=== PATIENT | female | born 1975 | race African-American/Black ===

== ENCOUNTER 2016-12-02 18:31 | Emergency (ER) | payer OTHER ==
[~2016-12-02] VITALS: Ht 157.5 cm; Wt 108.9 kg
--- NOTE | ~2016-12-02 | EKG ---
[place] [address] [address] [place] [address] ELECTROCARDIOGRAM REPORT Name: KRISTINE MORENO Room #: [facility] [id number] Admission: 12/02/16 Attend Phys: Discharge: 12/02/16 Date of : 73 Report #: [id number] THIS REPORT FOR: //name// [facility] ED Test Date: 2016-12-02 Test Time: 18:44:10 Pat Name: KRISTINE MORENO Department: Room: Gender: F Automation Manager: MZOOK : 1975 Requested By: Becky Slater Order Number: [id number] MD: Octavio Head Measurements Intervals Early Rate: 94 P: 12 SC: 134 QRS: 14 QRSD: 83 T: 22 QT: 356 QTc: 446 Interpretive Statements Sinus rhythm LVH by voltage Compared to ECG 02/12/2015 05:28:15 No significant changes Electronically Signed On 12-03-2016 7:21:05 CDT by Octavio Head [email or web address] <ELECTRONICALLY SIGNED> By: Octavio Head MD, [facility] 12/03/16 0721 1844 1844 Octavio Head MD, FACC /EPI
[~2016-12-02 18:31] MED LIST: ALKA-SELTZER E500 M1; ALPRAZOLAM 0.50.5 M1 PO; AMLODIPINE BESYL5 MG PO; AZITHROMYCIN 2250 MG; DEXILANT60 MG PO; DIAZEPAM 5 MG5 M1 PO; IBUPROFEN 600600 M1 PO; IBUPROFEN 800800 MG PO; LISINOPRIL10 MG PO; MEDROLDOSEPACK PO; MOBIC15 MG PO; NEXIUM40 MG PO; NORCO 5-325 TA1 EACH PO; PEPCID20 MG PO; SYMBICORT160 MCG/4. INH; ULTRAM 50MG TAB50 MG PO; VITAMIN D 5050000 I1 PO; VITAMIN D2000 UNIT PO; VITAMIN D400 UNI1 PO
[2016-12-02 19:26] LABS: EOSINOPHILS 1.5 % (0.0-3.0); HEMATOCRIT 39.2 % (37.0-47.0); HEMOGLOBIN 12.8 gm/dL (12.0-15.0); MCH 25.8 pg (26.0-34.0); MCHC 32.7 g/dL (28.0-37.0); MCV 78.7 fL (80.0-100.0); MONOCYTES 9.4 % (1.0-8.0); PLATELET COUNT 251 thou/uL (150-400); POLYS 53.1 % (36.0-66.0); RBC 4.98 mil/uL (4.20-5.00); RDW 15.7 % (10.5-14.5); WBC 7.5 thou/uL (4.0-11.0)
[2016-12-02 19:30] LABS: MANUAL DIFF NO
[2016-12-02 19:34] LABS: ANION GAP 10 mmol/L (7-16); BUN 11 mg/dL (7-18); CALCIUM 8.5 mg/dL (8.5-10.1); CHLORIDE 104 mmol/L (98-107); CO2 26 mmol/L (21-32); CREATININE 0.6 mg/dL (0.6-1.0); GLUCOSE 88 mg/dL (74-106); POTASSIUM 3.4 mmol/L (3.5-5.1); SODIUM 140 mmol/L (136-145)
[2016-12-02 19:42] LABS: TROPONIN-I < 0.04 ng/mL (<0.04-0.07)
[2016-12-02 22:00] VITALS: BP 131/78
== END 2016-12-02 22:00 | disposition home or self-care (01) ==
LOC: ER 18:31
PROVIDERS: Emergency Medicine
DX: R07.89 Other chest pain (principal); Z90.710 Acquired absence of both cervix and uterus; Z90.49 Acquired absence of other specified parts of digestive tract; F41.9 Anxiety disorder, unspecified; Z88.1 Allergy status to other antibiotic agents